=== PATIENT | male | born 1965 | race Caucasian/White ===

== ENCOUNTER 2021-01-30 03:22 | Outpatient (CLI) | payer OTHER, SELFPAY ==
[2021-01-30 08:18] LABS: Abs Immature Grans 0.01 10^3/uL (0.0-0.06); Absolute Basophil Count 0.04 10^3/uL (0.0-0.2); Absolute Eosinophil Count 0.06 10^3/uL (0.0-0.7); Absolute Lymphocyte Count 0.79 10^3/uL (1.2-3.4); Absolute Monocyte Count 0.52 10^3/uL (0.1-0.8); Absolute Neutrophil Count 2.34 10^3/uL (1.2-6.7); Basophils % 1.1; Eosinophils % 1.6; HGB 14.8 g/dL (13.5-17.5); Immature Grans % 0.3; MCH 32.6 pg (27.0-33.0); MCHC 35.2 % (32.0-36.0); MCV 92.5 fL (80-95); MPV 9.3 fL (8.0-11.0); Monocytes % 13.8; Neutrophils % 62.2; Nucleated RBC 0 %; Platelet Count 189 10^3/uL (130-400); RBC 4.54 10^6/uL (4.36-5.78); RDW 12.2 % (11.8-14.1); RDW-SD 41.7 fL; WBC 3.77 10^3/uL (4.4-10.8)
[2021-01-30 08:38] LABS: ALT 28 U/L (16-63); AST 8 U/L (15-37); Albumin 4.3 g/dL (3.4-5.0); Alkaline Phosphatase 77 U/L (46-116); Anion Gap 7.3 mmol/L (3-11); BUN 17 mg/dL (7-18); Bilirubin, Total 0.4 mg/dL (0.2-1.0); CO2 29.7 mmol/L (21.0-32.0); CREATININE 1.1 mg/dL (0.70-1.30); Chloride 104 mmol/L (98-107); Glucose 117 mg/dL (74-106); LDH 145 U/L (85-227); Potassium 4.3 mmol/L (3.5-5.1); Sodium 141 mmol/L (136-145); Total Protein 6.6 g/dL (6.4-8.2)
== END 2021-01-30 03:23 | disposition home or self-care (01) ==
LOC: LBO 03:23
PROVIDERS: PCP Family Medicine; Visit Provider Internal Medicine Hematology & Oncology
DX: C83.10 Mantle cell lymphoma, unspecified site (principal)
CPT/HCPCS: 36415; 80053; 83615; 85025

== ENCOUNTER 2021-02-20 19:03 | Outpatient (CLI) | payer OTHER, SELFPAY ==
[2021-02-20 10:47] LABS: Abs Immature Grans 0.03 10^3/uL (0.0-0.06); Absolute Basophil Count 0.04 10^3/uL (0.0-0.2); Absolute Eosinophil Count 0.04 10^3/uL (0.0-0.7); Absolute Lymphocyte Count 0.46 10^3/uL (1.2-3.4); Absolute Monocyte Count 0.67 10^3/uL (0.1-0.8); Absolute Neutrophil Count 2.86 10^3/uL (1.2-6.7); HCT 42.1 % (40.0-50.0); HGB 15.1 g/dL (13.5-17.5); Immature Grans % 0.7; Lymphocytes % 11.2; MCH 32.8 pg (27.0-33.0); MCHC 35.9 % (32.0-36.0); MCV 91.3 fL (80-95); MPV 8.7 fL (8.0-11.0); Monocytes % 16.3; Neutrophils % 69.8; Nucleated RBC 0 %; Platelet Count 148 10^3/uL (130-400); RBC 4.61 10^6/uL (4.36-5.78); RDW 11.7 % (11.8-14.1); RDW-SD 38.7 fL
[2021-02-20 10:59] LABS: ALT 49 U/L (16-63); AST 16 U/L (15-37); Albumin 4.2 g/dL (3.4-5.0); Alkaline Phosphatase 73 U/L (46-116); BUN 15 mg/dL (7-18); Bilirubin, Total 0.6 mg/dL (0.2-1.0); Calcium 9.3 mg/dL (8.5-10.1); Chloride 105 mmol/L (98-107); Glucose 116 mg/dL (74-106); LDH 165 U/L (85-227); Potassium 4.3 mmol/L (3.5-5.1); Sodium 142 mmol/L (136-145); Total Protein 6.7 g/dL (6.4-8.2)
== END 2021-02-20 19:04 | disposition home or self-care (01) ==
LOC: LBO 19:26
PROVIDERS: PCP Family Medicine; Visit Provider Internal Medicine Hematology & Oncology
DX: C83.10 Mantle cell lymphoma, unspecified site (principal)
CPT/HCPCS: 36415; 80053; 83615; 85025

== ENCOUNTER 2021-03-06 02:31 | Outpatient (RCR) | payer OTHER, SELFPAY ==
[2021-03-06] MEDS: Normal Saline Flush 10 ML SYR IVP (07:40)
[2021-03-06 07:49] LABS: Abs Immature Grans 0.02 10^3/uL (0.0-0.06); Absolute Basophil Count 0.02 10^3/uL (0.0-0.2); Absolute Eosinophil Count 0.09 10^3/uL (0.0-0.7); Absolute Lymphocyte Count 0.58 10^3/uL (1.2-3.4); Absolute Monocyte Count 0.69 10^3/uL (0.1-0.8); Basophils % 0.5; Eosinophils % 2.3; HCT 42.3 % (40.0-50.0); HGB 14.9 g/dL (13.5-17.5); Immature Grans % 0.5; Lymphocytes % 14.9; MCH 32.4 pg (27.0-33.0); MCHC 35.2 % (32.0-36.0); MPV 9.3 fL (8.0-11.0); Monocytes % 17.7; Neutrophils % 64.1; Nucleated RBC 0 %; Platelet Count 180 10^3/uL (130-400); RDW 13.2 % (11.8-14.1); RDW-SD 44.4 fL
[2021-03-06 08:06] LABS: ALT 39 U/L (16-63); AST 14 U/L (15-37); Albumin 4.1 g/dL (3.4-5.0); Alkaline Phosphatase 80 U/L (46-116); Anion Gap 9.6 mmol/L (3-11); BUN 19 mg/dL (7-18); Bilirubin, Total 0.4 mg/dL (0.2-1.0); CO2 27.4 mmol/L (21.0-32.0); CREATININE 1.1 mg/dL (0.70-1.30); Calcium 9.3 mg/dL (8.5-10.1); Chloride 104 mmol/L (98-107); Glucose 117 mg/dL (74-106); LDH 167 U/L (85-227); Potassium 4.2 mmol/L (3.5-5.1); Sodium 141 mmol/L (136-145); Total Protein 6.5 g/dL (6.4-8.2)
== END 2021-03-06 23:59 | disposition home or self-care (01) ==
LOC: INF 02:31
PROVIDERS: PCP Family Medicine; Visit Provider Internal Medicine Hematology & Oncology
DX: C83.10 Mantle cell lymphoma, unspecified site (principal); Z45.2 Encounter for adjustment and management of vascular access device
CPT/HCPCS: 36591; 80053; 83615; 85025

== ENCOUNTER 2021-05-01 08:24 | Outpatient (CLI) | payer OTHER, SELFPAY ==
[2021-05-01 08:35] LABS: Abs Immature Grans 0.14 10^3/uL (0.0-0.06); Absolute Basophil Count 0.05 10^3/uL (0.0-0.2); Absolute Eosinophil Count 0.01 10^3/uL (0.0-0.7); Absolute Lymphocyte Count 0.47 10^3/uL (1.2-3.4); Absolute Monocyte Count 0.74 10^3/uL (0.1-0.8); Basophils % 1.2; Eosinophils % 0.2; HCT 31.8 % (40.0-50.0); Immature Grans % 3.3; Lymphocytes % 11.2; MCH 32.7 pg (27.0-33.0); MCHC 34.6 % (32.0-36.0); MCV 94.6 fL (80-95); Monocytes % 17.6; Neutrophils % 66.5; Nucleated RBC 1 %; Platelet Count 235 10^3/uL (130-400); RBC 3.36 10^6/uL (4.36-5.78); RDW 16.7 % (11.8-14.1); RDW-SD 47.9 fL; WBC 4.21 10^3/uL (4.4-10.8)
[2021-05-01 08:55] LABS: ALT 41 U/L (16-63); AST 17 U/L (15-37); Albumin 3.8 g/dL (3.4-5.0); Alkaline Phosphatase 88 U/L (46-116); Anion Gap 7.3 mmol/L (3-11); BUN 16 mg/dL (7-18); Bilirubin, Total 0.4 mg/dL (0.2-1.0); CO2 30.7 mmol/L (21.0-32.0); CREATININE 1.1 mg/dL (0.70-1.30); Calcium 8.7 mg/dL (8.5-10.1); Chloride 104 mmol/L (98-107); Glucose 120 mg/dL (74-106); LDH 374 U/L (85-227); Potassium 4.4 mmol/L (3.5-5.1); Sodium 142 mmol/L (136-145); Total Protein 6.3 g/dL (6.4-8.2)
== END 2021-05-01 08:25 | disposition home or self-care (01) ==
LOC: LBO 08:30
PROVIDERS: PCP Family Medicine; Visit Provider Internal Medicine Hematology & Oncology
DX: C83.10 Mantle cell lymphoma, unspecified site (principal)
CPT/HCPCS: 36415; 80053; 83615; 85025

== ENCOUNTER 2021-06-12 07:43 | Outpatient (RCR) | payer OTHER, SELFPAY ==
[2021-06-12] MEDS: Normal Saline Flush 10 ML SYR IVP (08:03)
[2021-06-12] MEDS: Heparin 500 UNITS/5 ML SYRINGE IVP (08:04)
[2021-06-12 08:07] LABS: Abs Immature Grans 0.03 10^3/uL (0.0-0.06); Absolute Basophil Count 0.04 10^3/uL (0.0-0.2); Absolute Eosinophil Count 0.06 10^3/uL (0.0-0.7); Absolute Lymphocyte Count 0.31 10^3/uL (1.2-3.4); Absolute Monocyte Count 0.81 10^3/uL (0.1-0.8); Absolute Neutrophil Count 2.18 10^3/uL (1.2-6.7); Basophils % 1.2; Eosinophils % 1.7; HCT 34.9 % (40.0-50.0); HGB 11.9 g/dL (13.5-17.5); Immature Grans % 0.9; MCH 33.8 pg (27.0-33.0); MCHC 34.1 % (32.0-36.0); MCV 99.1 fL (80-95); MPV 9.1 fL (8.0-11.0); Monocytes % 23.6; Neutrophils % 63.6; Nucleated RBC 0 %; Platelet Count 135 10^3/uL (130-400); RBC 3.52 10^6/uL (4.36-5.78); RDW 15.6 % (11.8-14.1); WBC 3.43 10^3/uL (4.4-10.8)
[2021-06-12 08:22] LABS: ALT 37 U/L (16-63); AST 13 U/L (15-37); Albumin 3.8 g/dL (3.4-5.0); Alkaline Phosphatase 100 U/L (46-116); Anion Gap 5.5 mmol/L (3-11); BUN 14 mg/dL (7-18); Bilirubin, Total 0.4 mg/dL (0.2-1.0); CO2 30.5 mmol/L (21.0-32.0); CREATININE 1.2 mg/dL (0.70-1.30); Chloride 106 mmol/L (98-107); Glucose 115 mg/dL (74-106); LDH 218 U/L (85-227); Potassium 4.1 mmol/L (3.5-5.1); Sodium 142 mmol/L (136-145); Total Protein 6.2 g/dL (6.4-8.2)
== END 2021-07-07 23:59 | disposition home or self-care (01) ==
LOC: INF 07:43
PROVIDERS: PCP Family Medicine; Visit Provider Internal Medicine Hematology & Oncology
DX: C83.10 Mantle cell lymphoma, unspecified site (principal); Z45.2 Encounter for adjustment and management of vascular access device
CPT/HCPCS: 36591; 80053; 83615; 85025

== ENCOUNTER 2021-09-25 01:47 | Outpatient (RCR) | payer OTHER, SELFPAY ==
[2021-09-25 12:55] LABS: Abs Immature Grans 0.03 10^3/uL (0.0-0.06); Absolute Basophil Count 0.05 10^3/uL (0.0-0.2); Absolute Eosinophil Count 0.14 10^3/uL (0.0-0.7); Absolute Lymphocyte Count 1.03 10^3/uL (1.2-3.4); Absolute Monocyte Count 0.95 10^3/uL (0.1-0.8); Absolute Neutrophil Count 4.01 10^3/uL (1.2-6.7); Basophils % 0.8; Eosinophils % 2.3; HCT 43.4 % (40.0-50.0); Immature Grans % 0.5; Lymphocytes % 16.6; MCH 32.2 pg (27.0-33.0); MCHC 34.6 % (32.0-36.0); MCV 93.1 fL (80-95); MPV 8.9 fL (8.0-11.0); Monocytes % 15.3; Neutrophils % 64.5; Nucleated RBC 0 %; Platelet Count 166 10^3/uL (130-400); RBC 4.66 10^6/uL (4.36-5.78); RDW 14.1 % (11.8-14.1); RDW-SD 48.8 fL; WBC 6.21 10^3/uL (4.4-10.8)
[2021-09-25 13:04] LABS: ALT 117 U/L (16-63); AST 40 U/L (15-37); Albumin 4.2 g/dL (3.4-5.0); Alkaline Phosphatase 101 U/L (46-116); Anion Gap 8.4 mmol/L (3-11); BUN 9 mg/dL (7-18); Bilirubin, Total 0.3 mg/dL (0.2-1.0); CO2 28.6 mmol/L (21.0-32.0); CREATININE 1.1 mg/dL (0.70-1.30); Calcium 9.3 mg/dL (8.5-10.1); Chloride 103 mmol/L (98-107); Glucose 127 mg/dL (74-106); LDH 224 U/L (85-227); Potassium 4.1 mmol/L (3.5-5.1); Sodium 140 mmol/L (136-145)
== END 2021-10-07 23:59 | disposition home or self-care (01) ==
LOC: INF 01:47
PROVIDERS: PCP Family Medicine; Visit Provider Internal Medicine Hematology & Oncology
DX: C83.10 Mantle cell lymphoma, unspecified site (principal); Z45.2 Encounter for adjustment and management of vascular access device
CPT/HCPCS: 36415; 80053; 83615; 85025

== ENCOUNTER 2021-10-09 03:00 | Outpatient (RCR) | payer OTHER, SELFPAY ==
[2021-10-09] MEDS: Normal Saline Flush 10 ML SYR IVP (13:31)
[2021-10-09] MEDS: Heparin 500 UNITS/5 ML SYRINGE IV (13:32)
[2021-10-09 13:34] LABS: Abs Immature Grans 0.05 10^3/uL (0.0-0.06); Absolute Basophil Count 0.03 10^3/uL (0.0-0.2); Absolute Eosinophil Count 0.06 10^3/uL (0.0-0.7); Absolute Lymphocyte Count 0.68 10^3/uL (1.2-3.4); Absolute Monocyte Count 1.09 10^3/uL (0.1-0.8); Basophils % 0.3; Eosinophils % 0.6; HCT 39.2 % (40.0-50.0); HGB 13.8 g/dL (13.5-17.5); Immature Grans % 0.5; Lymphocytes % 6.4; MCH 33.1 pg (27.0-33.0); MCHC 35.2 % (32.0-36.0); MPV 9.2 fL (8.0-11.0); Monocytes % 10.3; Neutrophils % 81.9; Nucleated RBC 0 %; Platelet Count 169 10^3/uL (130-400); RBC 4.17 10^6/uL (4.36-5.78); RDW 13.1 % (11.8-14.1); WBC 10.61 10^3/uL (4.4-10.8)
[2021-10-09 13:57] LABS: ALT 101 U/L (16-63); AST 35 U/L (15-37); Albumin 4.1 g/dL (3.4-5.0); Alkaline Phosphatase 81 U/L (46-116); BUN 13 mg/dL (7-18); Bilirubin, Total 0.4 mg/dL (0.2-1.0); CREATININE 1.2 mg/dL (0.70-1.30); Calcium 9.1 mg/dL (8.5-10.1); Chloride 102 mmol/L (98-107); Glucose 110 mg/dL (74-106); LDH 227 U/L (85-227); Potassium 4.5 mmol/L (3.5-5.1); Sodium 138 mmol/L (136-145); Total Protein 6.7 g/dL (6.4-8.2)
== END 2021-11-04 23:59 | disposition home or self-care (01) ==
LOC: INF 03:00
PROVIDERS: PCP Family Medicine; Visit Provider Internal Medicine Hematology & Oncology
DX: C83.10 Mantle cell lymphoma, unspecified site (principal); Z45.2 Encounter for adjustment and management of vascular access device
CPT/HCPCS: 36591; 80053; 83615; 85025

== ENCOUNTER 2021-12-18 02:24 | Outpatient (RCR) | payer OTHER, SELFPAY ==
[2021-12-18] MEDS: Heparin 500 UNITS/5 ML SYRINGE (08:32)
[2021-12-18] MEDS: Normal Saline Flush 10 ML SYR IVP (08:32)
[2021-12-18 08:42] LABS: Abs Immature Grans 0.08 10^3/uL (0.0-0.06); Absolute Basophil Count 0.03 10^3/uL (0.0-0.2); Absolute Eosinophil Count 0.06 10^3/uL (0.0-0.7); Absolute Lymphocyte Count 0.67 10^3/uL (1.2-3.4); Absolute Monocyte Count 0.69 10^3/uL (0.1-0.8); Absolute Neutrophil Count 3.05 10^3/uL (1.2-6.7); Basophils % 0.7; Eosinophils % 1.3; HCT 39.8 % (40.0-50.0); Immature Grans % 1.7; Lymphocytes % 14.6; MCH 32.6 pg (27.0-33.0); MCHC 35.2 % (32.0-36.0); MCV 92.6 fL (80-95); MPV 8.8 fL (8.0-11.0); Monocytes % 15.1; Neutrophils % 66.6; Nucleated RBC 0 %; Platelet Count 145 10^3/uL (130-400); RDW 13.4 % (11.8-14.1); RDW-SD 44.7 fL; WBC 4.58 10^3/uL (4.4-10.8)
[2021-12-18 08:56] LABS: ALT 89 U/L (16-63); AST 30 U/L (15-37); Alkaline Phosphatase 86 U/L (46-116); BUN 18 mg/dL (7-18); Bilirubin, Total 0.5 mg/dL (0.2-1.0); CREATININE 1.2 mg/dL (0.70-1.30); Calcium 8.7 mg/dL (8.5-10.1); Chloride 104 mmol/L (98-107); Glucose 113 mg/dL (74-106); LDH 215 U/L (85-227); Potassium 4.5 mmol/L (3.5-5.1); Sodium 139 mmol/L (136-145); Total Protein 6.3 g/dL (6.4-8.2)
== END 2022-01-04 23:59 | disposition home or self-care (01) ==
LOC: INF 02:24
PROVIDERS: PCP Family Medicine; Visit Provider Internal Medicine Hematology & Oncology
DX: C83.18 Mantle cell lymphoma, lymph nodes of multiple sites (principal); Z45.2 Encounter for adjustment and management of vascular access device
CPT/HCPCS: 36591; 80053; 83615; 85025

== ENCOUNTER 2022-01-15 00:58 | Outpatient (RCR) | payer OTHER, SELFPAY ==
[2022-01-15 08:15] LABS: Abs Immature Grans 0.03 10^3/uL (0.0-0.06); Absolute Basophil Count 0.02 10^3/uL (0.0-0.2); Absolute Eosinophil Count 0.06 10^3/uL (0.0-0.7); Absolute Lymphocyte Count 0.45 10^3/uL (1.2-3.4); Absolute Monocyte Count 0.47 10^3/uL (0.1-0.8); Absolute Neutrophil Count 1.99 10^3/uL (1.2-6.7); Basophils % 0.7; HCT 40.7 % (40.0-50.0); HGB 14.4 g/dL (13.5-17.5); Lymphocytes % 14.9; MCH 33.9 pg (27.0-33.0); MCHC 35.4 % (32.0-36.0); MCV 96 fL (80-95); Monocytes % 15.6; Neutrophils % 65.8; Platelet Count 147 10^3/uL (130-400); RBC 4.25 10^6/uL (4.36-5.78); RDW 14.4 % (11.8-14.1); RDW-SD 50.3 fL; WBC 3.02 10^3/uL (4.4-10.8)
[2022-01-15 08:24] LABS: ALT 96 U/L (16-63); AST 29 U/L (15-37); Albumin 3.9 g/dL (3.4-5.0); Alkaline Phosphatase 91 U/L (46-116); Anion Gap 6.5 mmol/L (3-11); BUN 11 mg/dL (7-18); Bilirubin, Total 0.5 mg/dL (0.2-1.0); CO2 29.5 mmol/L (21.0-32.0); CREATININE 1.3 mg/dL (0.70-1.30); Calcium 8.5 mg/dL (8.5-10.1); Chloride 104 mmol/L (98-107); Estimated GFR 57.31 (mL/min/1.73m2); Glucose 126 mg/dL (74-106); LDH 225 U/L (85-227); Potassium 4.4 mmol/L (3.5-5.1); Sodium 140 mmol/L (136-145); Total Protein 6.1 g/dL (6.4-8.2)
[2022-01-15 08:37] LABS: Calculated LDL 189 mg/dL (<100); Cholesterol 266 mg/dL (<200); HDL Cholesterol 36 mg/dL (40-60); Triglyceride 208 mg/dL (<150)
[2022-01-15] MEDS: Normal Saline Flush 10 ML SYR IVP (08:38)
== END 2022-02-04 23:59 | disposition home or self-care (01) ==
LOC: INF 00:58
PROVIDERS: PCP Family Medicine; Visit Provider Internal Medicine Hematology & Oncology
DX: C83.18 Mantle cell lymphoma, lymph nodes of multiple sites (principal); Z45.2 Encounter for adjustment and management of vascular access device; E78.5 Hyperlipidemia, unspecified
CPT/HCPCS: 36591; 80053; 80061; 83615; 85025

== ENCOUNTER 2022-05-07 02:20 | Outpatient (RCR) | payer OTHER, SELFPAY ==
[2022-05-07] MEDS: Normal Saline Flush 10 ML SYR IVP (08:37)
[2022-05-07 09:00] LABS: Abs Immature Grans 0.05 10^3/uL (0.0-0.06); Absolute Basophil Count 0.05 10^3/uL (0.0-0.2); Absolute Eosinophil Count 0.37 10^3/uL (0.0-0.7); Absolute Lymphocyte Count 0.51 10^3/uL (1.2-3.4); Absolute Monocyte Count 0.78 10^3/uL (0.1-0.8); Absolute Neutrophil Count 3.95 10^3/uL (1.2-6.7); Basophils % 0.9; Eosinophils % 6.5; HCT 39.3 % (40.0-50.0); HGB 14.3 g/dL (13.5-17.5); Immature Grans % 0.9; Lymphocytes % 8.9; MCH 35.4 pg (27.0-33.0); MCHC 36.4 % (32.0-36.0); MCV 97 fL (80-95); MPV 9.1 fL (8.0-11.0); Monocytes % 13.7; Neutrophils % 69.1; Platelet Count 160 10^3/uL (130-400); RBC 4.04 10^6/uL (4.36-5.78); RDW 12.5 % (11.8-14.1); RDW-SD 44.5 fL; WBC 5.71 10^3/uL (4.4-10.8)
[2022-05-07 09:17] LABS: ALT 89 U/L (16-63); AST 32 U/L (15-37); Albumin 3.8 g/dL (3.4-5.0); Alkaline Phosphatase 138 U/L (46-116); Anion Gap 2.4 mmol/L (3-11); BUN 15 mg/dL (7-18); Bilirubin, Total 0.5 mg/dL (0.2-1.0); CO2 31.6 mmol/L (21.0-32.0); CREATININE 1.2 mg/dL (0.70-1.30); Calcium 8.7 mg/dL (8.5-10.1); Chloride 103 mmol/L (98-107); Estimated GFR 71.42 (mL/min/1.73m2); Glucose 156 mg/dL (74-106); LDH 202 U/L (85-227); Potassium 3.9 mmol/L (3.5-5.1); Sodium 137 mmol/L (136-145); Total Protein 6.4 g/dL (6.4-8.2)
== END 2022-05-07 23:59 | disposition home or self-care (01) ==
LOC: INF 02:20
PROVIDERS: PCP Family Medicine; Visit Provider Internal Medicine Hematology & Oncology
DX: Z45.2 Encounter for adjustment and management of vascular access device (principal); C83.18 Mantle cell lymphoma, lymph nodes of multiple sites; Z94.84 Stem cells transplant status
CPT/HCPCS: 36591; 80053; 83615; 85025

== ENCOUNTER 2022-07-02 02:54 | Outpatient (RCR) | payer OTHER, SELFPAY ==
[2022-07-02] MEDS: Normal Saline Flush 10 ML SYR IVP (08:23)
[2022-07-02 08:24] LABS: Abs Immature Grans 0.03 10^3/uL (0.0-0.06); Absolute Basophil Count 0.04 10^3/uL (0.0-0.2); Absolute Eosinophil Count 0.12 10^3/uL (0.0-0.7); Absolute Lymphocyte Count 0.82 10^3/uL (1.2-3.4); Absolute Monocyte Count 0.67 10^3/uL (0.1-0.8); Absolute Neutrophil Count 3.09 10^3/uL (1.2-6.7); Basophils % 0.8; Eosinophils % 2.5; HCT 41.8 % (40.0-50.0); HGB 15.2 g/dL (13.5-17.5); Immature Grans % 0.6; Lymphocytes % 17.2; MCH 35.1 pg (27.0-33.0); MCHC 36.4 % (32.0-36.0); MCV 97 fL (80-95); MPV 8.8 fL (8.0-11.0); Neutrophils % 64.9; Platelet Count 159 10^3/uL (130-400); RBC 4.33 10^6/uL (4.36-5.78); RDW 12.1 % (11.8-14.1); RDW-SD 43.3 fL; WBC 4.77 10^3/uL (4.4-10.8)
[2022-07-02 08:38] LABS: ALT 74 U/L (16-63); AST 26 U/L (15-37); Albumin 4.1 g/dL (3.4-5.0); Alkaline Phosphatase 121 U/L (46-116); Anion Gap 3.1 mmol/L (3-11); BUN 13 mg/dL (7-18); Bilirubin, Total 0.6 mg/dL (0.2-1.0); CO2 30.9 mmol/L (21.0-32.0); CREATININE 1.4 mg/dL (0.70-1.30); Calcium 8.8 mg/dL (8.5-10.1); Chloride 105 mmol/L (98-107); Estimated GFR 59.36 (mL/min/1.73m2); Glucose 120 mg/dL (74-106); LDH 186 U/L (85-227); Potassium 4.4 mmol/L (3.5-5.1); Sodium 139 mmol/L (136-145); Total Protein 6.4 g/dL (6.4-8.2)
== END 2022-07-07 23:59 | disposition home or self-care (01) ==
LOC: INF 02:54
PROVIDERS: PCP Family Medicine; Visit Provider Internal Medicine Hematology & Oncology
DX: Z45.2 Encounter for adjustment and management of vascular access device (principal); C83.18 Mantle cell lymphoma, lymph nodes of multiple sites; Z94.84 Stem cells transplant status
CPT/HCPCS: 36591; 80053; 83615; 85025

== ENCOUNTER 2022-08-14 01:27 | Outpatient (RCR) | payer OTHER, SELFPAY | END 2022-09-06 23:59 | disposition home or self-care (01) | LOC: INF 01:27 | PROVIDERS: PCP Family Medicine; Visit Provider Internal Medicine | DX: C83.10 Mantle cell lymphoma, unspecified site (principal) | CPT/HCPCS: 96372; Q0221 ==

== ENCOUNTER 2022-12-31 02:47 | Outpatient (RCR) | payer OTHER, SELFPAY ==
[2022-12-31] MEDS: Normal Saline Flush 10 ML SYR IVP (09:35)
[2022-12-31 09:51] LABS: Abs Immature Grans 0.03 10^3/uL (0.0-0.06); Absolute Basophil Count 0.04 10^3/uL (0.0-0.2); Absolute Eosinophil Count 0.07 10^3/uL (0.0-0.7); Absolute Lymphocyte Count 0.89 10^3/uL (1.2-3.4); Absolute Monocyte Count 0.68 10^3/uL (0.1-0.8); Absolute Neutrophil Count 4.15 10^3/uL (1.2-6.7); Basophils % 0.7; Eosinophils % 1.2; HCT 43.4 % (40.0-50.0); HGB 15.9 g/dL (13.5-17.5); Immature Grans % 0.5; Lymphocytes % 15.2; MCH 33.1 pg (27.0-33.0); MCHC 36.6 % (32.0-36.0); MCV 90 fL (80-95); MPV 9.8 fL (8.0-11.0); Monocytes % 11.6; Neutrophils % 70.8; Platelet Count 169 10^3/uL (130-400); RBC 4.81 10^6/uL (4.36-5.78); RDW 12.7 % (11.8-14.1); RDW-SD 41.5 fL; WBC 5.86 10^3/uL (4.4-10.8)
[2022-12-31 10:25] LABS: ALT 72 U/L (16-63); AST 24 U/L (15-37); Albumin 4.4 g/dL (3.4-5.0); Alkaline Phosphatase 94 U/L (46-116); Anion Gap 6.3 mmol/L (3-11); BUN 14 mg/dL (7-18); Bilirubin, Total 0.8 mg/dL (0.2-1.0); CO2 28.7 mmol/L (21.0-32.0); CREATININE 1.3 mg/dL (0.70-1.30); Calcium 9.2 mg/dL (8.5-10.1); Chloride 104 mmol/L (98-107); Estimated GFR 64.88 (mL/min/1.73m2); Glucose 126 mg/dL (74-106); LDH 190 U/L (85-227); Potassium 4.4 mmol/L (3.5-5.1); Sodium 139 mmol/L (136-145); Total Protein 6.8 g/dL (6.4-8.2)
== END 2023-01-04 23:59 | disposition home or self-care (01) ==
LOC: INF 02:47
PROVIDERS: PCP Family Medicine; Visit Provider Internal Medicine Hematology & Oncology
DX: Z45.2 Encounter for adjustment and management of vascular access device (principal); C83.18 Mantle cell lymphoma, lymph nodes of multiple sites; Z94.84 Stem cells transplant status
CPT/HCPCS: 36591; 80053; 83615; 85025

== ENCOUNTER 2023-03-04 02:23 | Outpatient (RCR) | payer OTHER, SELFPAY ==
[2023-03-04] MEDS: Normal Saline Flush 10 ML SYR IVP (07:46)
[2023-03-04 08:07] LABS: Abs Immature Grans 0.02 10^3/uL (0.0-0.06); Absolute Basophil Count 0.04 10^3/uL (0.0-0.2); Absolute Eosinophil Count 0.07 10^3/uL (0.0-0.7); Absolute Monocyte Count 0.66 10^3/uL (0.1-0.8); Absolute Neutrophil Count 3.63 10^3/uL (1.2-6.7); Basophils % 0.8; Eosinophils % 1.4; HCT 41.4 % (40.0-50.0); HGB 14.9 g/dL (13.5-17.5); Immature Grans % 0.4; Lymphocytes % 13.7; MCH 33.2 pg (27.0-33.0); MCV 92 fL (80-95); MPV 9.4 fL (8.0-11.0); Monocytes % 12.9; Neutrophils % 70.8; Platelet Count 155 10^3/uL (130-400); RBC 4.49 10^6/uL (4.36-5.78); RDW 12.7 % (11.8-14.1); RDW-SD 42.8 fL; WBC 5.12 10^3/uL (4.4-10.8)
[2023-03-04 08:26] LABS: ALT 61 U/L (16-63); AST 21 U/L (15-37); Albumin 4.1 g/dL (3.4-5.0); Alkaline Phosphatase 98 U/L (46-116); BUN 16 mg/dL (7-18); Bilirubin, Total 0.7 mg/dL (0.2-1.0); CREATININE 1.2 mg/dL (0.70-1.30); Calcium 8.9 mg/dL (8.5-10.1); Chloride 106 mmol/L (98-107); Estimated GFR 70.98 (mL/min/1.73m2); Glucose 124 mg/dL (74-106); LDH 171 U/L (85-227); Potassium 4.3 mmol/L (3.5-5.1); Sodium 143 mmol/L (136-145); Total Protein 6.3 g/dL (6.4-8.2)
== END 2023-03-06 23:59 | disposition home or self-care (01) ==
LOC: INF 02:23
PROVIDERS: PCP Family Medicine; Visit Provider Internal Medicine Hematology & Oncology
DX: Z45.2 Encounter for adjustment and management of vascular access device (principal); C83.18 Mantle cell lymphoma, lymph nodes of multiple sites; Z94.84 Stem cells transplant status
CPT/HCPCS: 36591; 80053; 83615; 85025

== ENCOUNTER 2023-07-01 03:16 | Outpatient (RCR) | payer BC, SELFPAY ==
[2023-07-01] MEDS: Normal Saline Flush 10 ML SYR IVP (08:11)
[2023-07-01 08:41] LABS: Abs Immature Grans 0.02 10^3/uL (0.0-0.06); Absolute Basophil Count 0.04 10^3/uL (0.0-0.2); Absolute Eosinophil Count 0.07 10^3/uL (0.0-0.7); Absolute Lymphocyte Count 0.82 10^3/uL (1.2-3.4); Absolute Neutrophil Count 3.99 10^3/uL (1.2-6.7); Basophils % 0.7; Eosinophils % 1.2; HCT 41.9 % (40.0-50.0); Immature Grans % 0.4; Lymphocytes % 14.5; MCH 33.1 pg (27.0-33.0); MCHC 35.8 % (32.0-36.0); MCV 93 fL (80-95); MPV 9.1 fL (8.0-11.0); Monocytes % 12.4; Neutrophils % 70.8; Platelet Count 173 10^3/uL (130-400); RBC 4.53 10^6/uL (4.36-5.78); RDW 12.3 % (11.8-14.1); RDW-SD 42.2 fL; WBC 5.64 10^3/uL (4.4-10.8)
[2023-07-01 09:00] LABS: ALT 60 U/L (16-63); AST 22 U/L (15-37); Albumin 4.1 g/dL (3.4-5.0); Alkaline Phosphatase 86 U/L (46-116); Anion Gap 6.9 mmol/L (3-11); BUN 13 mg/dL (7-18); Bilirubin, Total 0.6 mg/dL (0.2-1.0); CO2 29.1 mmol/L (21.0-32.0); CREATININE 1.2 mg/dL (0.70-1.30); Calcium 9.3 mg/dL (8.5-10.1); Chloride 105 mmol/L (98-107); Estimated GFR 70.98 (mL/min/1.73m2); Glucose 124 mg/dL (74-106); LDH 174 U/L (85-227); Potassium 4.1 mmol/L (3.5-5.1); Sodium 141 mmol/L (136-145); Total Protein 6.4 g/dL (6.4-8.2)
[2023-07-01 11:08] LABS: Calculated LDL 75 mg/dL (<100); Cholesterol 156 mg/dL (<200); HDL Cholesterol 46 mg/dL (40-60); Triglyceride 176 mg/dL (<150)
[2023-07-03 11:29] LABS: PSA, Ultrasensitive 1.4 ng/mL (<= 3.5)
[2023-07-06 12:38] LABS: Testosterone, Total 234 ng/dL (240-950)
== END 2023-07-07 23:59 | disposition home or self-care (01) ==
LOC: INF 03:16
PROVIDERS: PCP Family Medicine; Visit Provider Internal Medicine Hematology & Oncology
DX: C83.18 Mantle cell lymphoma, lymph nodes of multiple sites (principal); Z45.2 Encounter for adjustment and management of vascular access device
CPT/HCPCS: 36591; 80053; 80061; 84153; 84403; 83615; 85025

== ENCOUNTER 2023-08-26 03:47 | Outpatient (RCR) | payer BC, SELFPAY ==
[2023-08-26] MEDS: Normal Saline Flush 10 ML SYR IVP (08:19)
[2023-08-26 08:42] LABS: Abs Immature Grans 0.05 10^3/uL (0.0-0.06); Absolute Basophil Count 0.04 10^3/uL (0.0-0.2); Absolute Eosinophil Count 0.15 10^3/uL (0.0-0.7); Absolute Lymphocyte Count 0.89 10^3/uL (1.2-3.4); Absolute Monocyte Count 1.01 10^3/uL (0.1-0.8); Absolute Neutrophil Count 3.63 10^3/uL (1.2-6.7); Basophils % 0.7; Eosinophils % 2.6; HCT 46.5 % (40.0-50.0); HGB 16.8 g/dL (13.5-17.5); Immature Grans % 0.9; Lymphocytes % 15.4; MCHC 36.1 % (32.0-36.0); MCV 91 fL (80-95); MPV 9.5 fL (8.0-11.0); Monocytes % 17.5; Neutrophils % 62.9; Platelet Count 176 10^3/uL (130-400); RBC 5.09 10^6/uL (4.36-5.78); RDW 12.5 % (11.8-14.1); RDW-SD 42.1 fL; WBC 5.77 10^3/uL (4.4-10.8)
[2023-08-26 08:58] LABS: ALT 45 U/L (16-63); AST 11 U/L (15-37); Albumin 4.1 g/dL (3.4-5.0); Alkaline Phosphatase 104 U/L (46-116); Anion Gap 8.3 mmol/L (3-11); BUN 8 mg/dL (7-18); Bilirubin, Total 0.5 mg/dL (0.2-1.0); CO2 29.7 mmol/L (21.0-32.0); CREATININE 1.3 mg/dL (0.70-1.30); Calcium 9.1 mg/dL (8.5-10.1); Chloride 103 mmol/L (98-107); Estimated GFR 64.47 (mL/min/1.73m2); Glucose 142 mg/dL (74-106); LDH 171 U/L (85-227); Potassium 3.6 mmol/L (3.5-5.1); Sodium 141 mmol/L (136-145); Total Protein 7.2 g/dL (6.4-8.2)
[2023-08-27 09:45] LABS: IgG 247 mg/dL (610-1616)
[2023-09-09 14:16] LABS: Testosterone, Free 94.5 ng/dL (3.87-14.7); Testosterone, Total 2000 ng/dL (240-950)
== END 2023-09-06 23:59 | disposition home or self-care (01) ==
LOC: INF 03:47
PROVIDERS: PCP Family Medicine; Visit Provider Internal Medicine Hematology & Oncology
DX: E29.1 Testicular hypofunction (principal); C83.18 Mantle cell lymphoma, lymph nodes of multiple sites; Z94.84 Stem cells transplant status; Z45.2 Encounter for adjustment and management of vascular access device
CPT/HCPCS: 36591; 80053; 82784; 84402; 84403; 83615; 85025

== ENCOUNTER 2023-09-30 02:15 | Outpatient (RCR) | payer BC, SELFPAY ==
[2023-09-30] MEDS: Normal Saline Flush 10 ML SYR IVP (07:41)
[2023-09-30 07:52] LABS: Abs Immature Grans 0.04 10^3/uL (0.0-0.06); Absolute Basophil Count 0.03 10^3/uL (0.0-0.2); Absolute Eosinophil Count 0.13 10^3/uL (0.0-0.7); Absolute Lymphocyte Count 0.92 10^3/uL (1.2-3.4); Absolute Monocyte Count 0.77 10^3/uL (0.1-0.8); Basophils % 0.5; Eosinophils % 2.1; HCT 44.5 % (40.0-50.0); Immature Grans % 0.7; Lymphocytes % 15.1; MCH 32.7 pg (27.0-33.0); MCV 91 fL (80-95); MPV 9.2 fL (8.0-11.0); Monocytes % 12.6; Platelet Count 169 10^3/uL (130-400); RDW 12.9 % (11.8-14.1); RDW-SD 42.8 fL; WBC 6.09 10^3/uL (4.4-10.8)
[2023-09-30 08:14] LABS: ALT 64 U/L (16-63); AST 22 U/L (15-37); Albumin 4.2 g/dL (3.4-5.0); Alkaline Phosphatase 87 U/L (46-116); Anion Gap 8.3 mmol/L (3-11); BUN 13 mg/dL (7-18); Bilirubin, Total 0.7 mg/dL (0.2-1.0); CO2 29.7 mmol/L (21.0-32.0); CREATININE 1.2 mg/dL (0.70-1.30); Calcium 9.2 mg/dL (8.5-10.1); Chloride 104 mmol/L (98-107); Estimated GFR 70.98 (mL/min/1.73m2); Glucose 122 mg/dL (74-106); LDH 171 U/L (85-227); Potassium 4.2 mmol/L (3.5-5.1); Sodium 142 mmol/L (136-145); Total Protein 6.5 g/dL (6.4-8.2)
[2023-10-01 10:14] LABS: IgG 251 mg/dL (610-1616)
== END 2023-10-07 23:59 | disposition home or self-care (01) ==
LOC: INF 02:15
PROVIDERS: PCP Family Medicine; Visit Provider Internal Medicine Hematology & Oncology
DX: C83.18 Mantle cell lymphoma, lymph nodes of multiple sites (principal); Z94.84 Stem cells transplant status; Z45.2 Encounter for adjustment and management of vascular access device
CPT/HCPCS: 36591; 80053; 82784; 83615; 85025

== ENCOUNTER 2023-11-25 04:45 | Outpatient (RCR) | payer BC, SELFPAY ==
[2023-11-25] MEDS: Normal Saline Flush 10 ML SYR IVP (07:35)
[2023-11-25 08:02] LABS: Abs Immature Grans 0.04 10^3/uL (0.0-0.06); Absolute Basophil Count 0.04 10^3/uL (0.0-0.2); Absolute Eosinophil Count 0.15 10^3/uL (0.0-0.7); Absolute Lymphocyte Count 0.78 10^3/uL (1.2-3.4); Absolute Monocyte Count 0.63 10^3/uL (0.1-0.8); Absolute Neutrophil Count 3.88 10^3/uL (1.2-6.7); Basophils % 0.7; Eosinophils % 2.7; HCT 41.6 % (40.0-50.0); HGB 15.3 g/dL (13.5-17.5); Immature Grans % 0.7; Lymphocytes % 14.1; MCH 33.8 pg (27.0-33.0); MCHC 36.8 % (32.0-36.0); MCV 92 fL (80-95); MPV 9.1 fL (8.0-11.0); Monocytes % 11.4; Neutrophils % 70.4; Platelet Count 161 10^3/uL (130-400); RBC 4.53 10^6/uL (4.36-5.78); RDW 13.4 % (11.8-14.1); RDW-SD 45.1 fL; WBC 5.52 10^3/uL (4.4-10.8)
[2023-11-25 08:29] LABS: ALT 66 U/L (16-63); AST 29 U/L (15-37); Albumin 3.9 g/dL (3.4-5.0); Alkaline Phosphatase 103 U/L (46-116); Anion Gap 8.2 mmol/L (3-11); BUN 15 mg/dL (7-18); Bilirubin, Total 0.6 mg/dL (0.2-1.0); CO2 28.8 mmol/L (21.0-32.0); CREATININE 1.2 mg/dL (0.70-1.30); Calcium 8.7 mg/dL (8.5-10.1); Chloride 105 mmol/L (98-107); Estimated GFR 70.98 (mL/min/1.73m2); Glucose 131 mg/dL (74-106); LDH 293 U/L (85-227); Potassium 4.3 mmol/L (3.5-5.1); Sodium 142 mmol/L (136-145); Total Protein 6.3 g/dL (6.4-8.2)
[2023-11-26 09:42] LABS: IgG 242 mg/dL (610-1616)
[2023-11-26 19:10] LABS: PSA, Ultrasensitive 1.3 ng/mL (<= 3.5)
[2023-12-01 15:47] LABS: Testosterone, Free 5.79 ng/dL (3.87-14.7); Testosterone, Total 192 ng/dL (240-950)
== END 2023-12-06 23:59 | disposition home or self-care (01) ==
LOC: INF 04:45
PROVIDERS: PCP Family Medicine; Visit Provider Internal Medicine Hematology & Oncology
DX: E29.1 Testicular hypofunction (principal); C83.18 Mantle cell lymphoma, lymph nodes of multiple sites; Z94.84 Stem cells transplant status; Z45.2 Encounter for adjustment and management of vascular access device
CPT/HCPCS: 36591; 80053; 82784; 84153; 84402; 84403; 83615; 85025

== ENCOUNTER 2023-12-25 01:43 | Outpatient (RCR) | payer BC, SELFPAY ==
[2023-12-25 08:13] LABS: Abs Immature Grans 0.06 10^3/uL (0.0-0.06); Absolute Basophil Count 0.04 10^3/uL (0.0-0.2); Absolute Eosinophil Count 0.14 10^3/uL (0.0-0.7); Absolute Lymphocyte Count 0.91 10^3/uL (1.2-3.4); Absolute Monocyte Count 0.72 10^3/uL (0.1-0.8); Absolute Neutrophil Count 4.15 10^3/uL (1.2-6.7); Basophils % 0.7; Eosinophils % 2.3; HCT 43.1 % (40.0-50.0); HGB 15.8 g/dL (13.5-17.5); Lymphocytes % 15.1; MCH 34.1 pg (27.0-33.0); MCHC 36.7 % (32.0-36.0); MCV 93 fL (80-95); MPV 9.4 fL (8.0-11.0); Neutrophils % 68.9; Platelet Count 159 10^3/uL (130-400); RBC 4.64 10^6/uL (4.36-5.78); RDW 13.2 % (11.8-14.1); RDW-SD 44.3 fL; WBC 6.02 10^3/uL (4.4-10.8)
[2023-12-25] MEDS: Normal Saline Flush 10 ML SYR IVP (08:19)
[2023-12-25 08:36] LABS: ALT 70 U/L (16-63); AST 25 U/L (15-37); Albumin 4.1 g/dL (3.4-5.0); Alkaline Phosphatase 96 U/L (46-116); Anion Gap 7.6 mmol/L (3-11); BUN 14 mg/dL (7-18); Bilirubin, Total 0.7 mg/dL (0.2-1.0); CO2 29.4 mmol/L (21.0-32.0); CREATININE 1.1 mg/dL (0.70-1.30); Calcium 8.9 mg/dL (8.5-10.1); Chloride 105 mmol/L (98-107); Estimated GFR 78.79 (mL/min/1.73m2); Glucose 136 mg/dL (74-106); LDH 218 U/L (85-227); Potassium 4.3 mmol/L (3.5-5.1); Sodium 142 mmol/L (136-145); Total Protein 6.4 g/dL (6.4-8.2)
== END 2024-01-05 23:59 | disposition home or self-care (01) ==
LOC: INF 01:43
PROVIDERS: PCP Family Medicine; Visit Provider Internal Medicine Hematology & Oncology
DX: C83.18 Mantle cell lymphoma, lymph nodes of multiple sites (principal); Z94.84 Stem cells transplant status
CPT/HCPCS: 36591; 80053; 83615; 85025

== ENCOUNTER 2024-01-20 04:34 | Outpatient (RCR) | payer BC, SELFPAY ==
[2024-01-20] MEDS: Normal Saline Flush 10 ML SYR IVP (07:53)
[2024-01-20 08:07] LABS: Abs Immature Grans 0.05 10^3/uL (0.0-0.06); Absolute Basophil Count 0.04 10^3/uL (0.0-0.2); Absolute Eosinophil Count 0.12 10^3/uL (0.0-0.7); Absolute Lymphocyte Count 0.99 10^3/uL (1.2-3.4); Absolute Neutrophil Count 3.97 10^3/uL (1.2-6.7); Basophils % 0.7 %; HGB 15.4 g/dL (13.5-17.5); Immature Grans % 0.8 %; Lymphocytes % 16.6 %; MCH 33.8 pg (27.0-33.0); MCHC 35.8 % (32.0-36.0); MCV 95 fL (80-95); MPV 9.5 fL (8.0-11.0); Monocytes % 13.4 %; Neutrophils % 66.5 %; Platelet Count 160 10^3/uL (130-400); RBC 4.55 10^6/uL (4.36-5.78); RDW 12.5 % (11.8-14.1); RDW-SD 43.3 fL; WBC 5.97 10^3/uL (4.4-10.8)
[2024-01-20 08:36] LABS: ALT 83 U/L (16-63); AST 24 U/L (15-37); Albumin 4.1 g/dL (3.4-5.0); Alkaline Phosphatase 102 U/L (46-116); Anion Gap 5.7 mmol/L (3-11); BUN 15 mg/dL (7-18); Bilirubin, Total 0.5 mg/dL (0.2-1.0); CO2 29.3 mmol/L (21.0-32.0); CREATININE 1.2 mg/dL (0.70-1.30); Chloride 106 mmol/L (98-107); Estimated GFR 70.53 (mL/min/1.73m2); Glucose 137 mg/dL (74-106); Sodium 141 mmol/L (136-145); Total Protein 6.2 g/dL (6.4-8.2)
[2024-01-20 08:48] LABS: LDH 186 U/L (85-227)
[2024-01-21 10:28] LABS: IgG 227 mg/dL (610-1616)
== END 2024-02-05 23:59 | disposition home or self-care (01) ==
LOC: INF 04:34
PROVIDERS: Nurse Practitioner Adult Health; PCP Family Medicine; Visit Provider Internal Medicine Hematology & Oncology
DX: C83.18 Mantle cell lymphoma, lymph nodes of multiple sites (principal); Z94.84 Stem cells transplant status; E29.1 Testicular hypofunction
CPT/HCPCS: 36591; 80053; 82784; 83615; 85025

== ENCOUNTER 2024-02-19 01:53 | Outpatient (RCR) | payer BC, SELFPAY ==
[2024-02-19] MEDS: Normal Saline Flush 10 ML SYR IVP (08:47)
[2024-02-19 09:25] LABS: Abs Immature Grans 0.09 10^3/uL (0.0-0.06); Absolute Basophil Count 0.04 10^3/uL (0.0-0.2); Absolute Eosinophil Count 0.14 10^3/uL (0.0-0.7); Absolute Lymphocyte Count 0.88 10^3/uL (1.2-3.4); Absolute Monocyte Count 1.06 10^3/uL (0.1-0.8); Absolute Neutrophil Count 5.33 10^3/uL (1.2-6.7); Basophils % 0.5 %; Eosinophils % 1.9 %; HCT 44.7 % (40.0-50.0); HGB 15.8 g/dL (13.5-17.5); Immature Grans % 1.2 %; Lymphocytes % 11.7 %; MCH 33.8 pg (27.0-33.0); MCHC 35.3 % (32.0-36.0); MCV 96 fL (80-95); MPV 9.8 fL (8.0-11.0); Monocytes % 14.1 %; Neutrophils % 70.6 %; Platelet Count 162 10^3/uL (130-400); RBC 4.67 10^6/uL (4.36-5.78); RDW 12.4 % (11.8-14.1); RDW-SD 44.1 fL; WBC 7.54 10^3/uL (4.4-10.8)
== END 2024-03-06 23:59 | disposition home or self-care (01) ==
LOC: INF 01:53
PROVIDERS: PCP Family Medicine; Visit Provider Internal Medicine Hematology & Oncology
DX: C83.18 Mantle cell lymphoma, lymph nodes of multiple sites (principal); Z94.84 Stem cells transplant status
CPT/HCPCS: 36591; 85025

== ENCOUNTER 2024-03-16 00:48 | Outpatient (RCR) | payer BC, SELFPAY ==
[2024-03-16 08:08] LABS: Abs Immature Grans 0.08 10^3/uL (0.0-0.06); Absolute Basophil Count 0.03 10^3/uL (0.0-0.2); Absolute Eosinophil Count 0.13 10^3/uL (0.0-0.7); Absolute Lymphocyte Count 0.92 10^3/uL (1.2-3.4); Absolute Monocyte Count 0.78 10^3/uL (0.1-0.8); Absolute Neutrophil Count 5.08 10^3/uL (1.2-6.7); Basophils % 0.4 %; Eosinophils % 1.9 %; HGB 15.9 g/dL (13.5-17.5); Immature Grans % 1.1 %; Lymphocytes % 13.1 %; MCH 34.1 pg (27.0-33.0); MCHC 36.1 % (32.0-36.0); MCV 94 fL (80-95); MPV 9.7 fL (8.0-11.0); Monocytes % 11.1 %; Neutrophils % 72.4 %; Platelet Count 146 10^3/uL (130-400); RBC 4.66 10^6/uL (4.36-5.78); RDW-SD 44.3 fL; WBC 7.02 10^3/uL (4.4-10.8)
[2024-03-16 08:39] LABS: ALT 57 U/L (16-63); AST 21 U/L (15-37); Albumin 3.9 g/dL (3.4-5.0); Alkaline Phosphatase 112 U/L (46-116); Anion Gap 5.1 mmol/L (3-11); BUN 9 mg/dL (7-18); Bilirubin, Total 0.57 mg/dL (0.2-1.0); CO2 30.9 mmol/L (21.0-32.0); CREATININE 1.2 mg/dL (0.70-1.30); Calcium 8.7 mg/dL (8.5-10.1); Chloride 103 mmol/L (98-107); Estimated GFR 70.53 (mL/min/1.73m2); Glucose 127 mg/dL (74-106); LDH 195 U/L (85-227); Potassium 3.6 mmol/L (3.5-5.1); Sodium 139 mmol/L (136-145); Total Protein 6.3 g/dL (6.4-8.2)
[2024-03-16] MEDS: Normal Saline Flush 10 ML SYR IVP (08:43)
[2024-03-17 09:15] LABS: IgG 216 mg/dL (610-1616)
[2024-03-22 13:21] LABS: Testosterone, Total 966 ng/dL (240-950)
== END 2024-04-06 23:59 | disposition home or self-care (01) ==
LOC: INF 00:48
PROVIDERS: PCP Family Medicine; Visit Provider Internal Medicine Hematology & Oncology
DX: C83.18 Mantle cell lymphoma, lymph nodes of multiple sites (principal); Z94.84 Stem cells transplant status; E29.1 Testicular hypofunction; Z45.2 Encounter for adjustment and management of vascular access device
CPT/HCPCS: 36591; 80053; 82784; 84402; 84403; 83615; 85025